=== PATIENT | female | born 1970 | race African-American/Black ===

== ENCOUNTER 2016-12-06 18:10 | Emergency (ER) | payer BC, OTHER ==
[~2016-12-06] VITALS: Ht 167.6 cm; Wt 152.9 kg
[~2016-12-06 18:10] MED LIST: ACET325T9 PO; APIX5TAB PO; IBUP-1060 PO; LISI-334 PO; MEGE400O PO; OMEP20CA9 PO; TIZA4TAB PO; VENTOLIN HFA18 GM INH
--- NOTE | 2016-12-06 19:19 | PHYS DOC ---
Past Medical History Past Medical History: GERD, High Cholesterol, Hypertension, Other Additional Past Medical Histor: DVT, PULMONARY EMBOLISM Past Surgical History: Hysterectomy, Tonsillectomy Alcohol Use: None Drug Use: None Adult General Chief Complaint Chief Complaint: CHEST PAIN HPI HPI Patient is a 46 year old female who presents from primary care clinic for concern of hypertension and chest pain. She notes 2 weeks of anterior chest pain that is pressure-like, mild, constant, nonradiating, involving the entire chest. She denies cough, dyspnea, palpitations, orthopnea, leg pain or swelling , hemoptysis, fever or chills, nausea or vomiting, sore throat, rhinorrhea. Review of Systems Review of Systems Constitutional: Denies fever or chills [] Eyes: Denies change in visual acuity, redness, or eye pain [] HENT: Denies nasal congestion or sore throat [] Respiratory: Denies cough or shortness of breath [] Cardiovascular: No additional information not addressed in HPI [] GI: Denies abdominal pain, nausea, vomiting, bloody stools or diarrhea [] : Denies dysuria or hematuria [] Musculoskeletal: Denies back pain or joint pain [] Integument: Denies rash or skin lesions [] Neurologic: Denies headache, focal weakness or sensory changes [] Endocrine: Denies polyuria or polydipsia [] Current Medications Current Medications Current Medications Medications (Trade) Dose Ordered Sig/Manisha Start Time Stop Time Status Last Admin Dose Admin Acetaminophen (Tylenol) 500 mg 1X ONCE 12/06/16 19:30 12/06/16 19:31 DC 12/06/16 19:26 500 MG Allergies Allergies Allergies Coded Allergies Type Severity Reaction Last Updated Verified No Known Drug Allergies 08/05/16 No Physical Exam Physical Exam Constitutional: Well developed, well nourished, no acute distress, non-toxic appearance. [] HENT: Normocephalic, atraumatic, bilateral external ears normal, oropharynx moist, nose normal. [] Eyes: PERRLA, EOMI. [] Neck: Normal range of motion, supple. [] Cardiovascular:Heart rate regular rhythm [] Lungs & Thorax: Bilateral breath sounds clear to auscultation [] Abdomen: Bowel sounds normal, soft, no tenderness. [] Skin: Warm, dry, no erythema, no rash. [] Back: Normal range of motion. [] Extremities: No tenderness, ROM intact, no edema. [] Neurologic: Alert and oriented X 3, normal motor function, normal sensory function, no focal deficits noted. [] Psychologic: Affect normal, judgement normal, mood normal. [] Current Patient Data Vital Signs Vital Signs Date Time Temp Pulse Resp B/P Pulse Ox O2 Delivery O2 Flow Rate FiO2 12/06/16 19:28 92 20 154/89 97 Room Air 12/06/16 18:19 98.8 98.8 Lab Values Laboratory Tests Test 12/06/16 18:51 POC Troponin I 0.00ng/ml (<0.08) EKG EKG EKG as interpreted by me as normal sinus rhythm, rate 97, no ST-T changes, normal intervals, no ectopy Course & Med Decision Making Course & Med Decision Making Pertinent Labs and Imaging studies reviewed. (See chart for details) Workup is unremarkable. Encouraged follow-up with her primary care doctor for atypical chest pain and uncontrolled hypertension. Return precautions given. She understands and agrees with plan. Dragon Disclaimer Dragon Disclaimer This electronic medical record was generated, in whole or in part, using a voice recognition dictation system. Departure Departure Impression: Primary Impression: Chest pain Additional Impression: Uncontrolled hypertension Disposition: HOME, SELF-CARE Condition: STABLE Referrals: MISTY LITTLE DO (PCP) Patient Instructions: Chest Pain (Nonspecific), [id number] Additional Instructions: Follow-up with your primary care doctor. Return for any concerns. Problem Qualifiers Primary Impression: Chest pain Chest pain type: unspecified Qualified Code: R07.9 - Chest pain, unspecified Joy LYNN MD December 06, 2016 19:19
[2016-12-06 19:28] VITALS: BP 154/89
[2016-12-06] MEDS ORDERED: ACETAMINOPHEN 500 MG TABLET PO ONE (19:30)
--- NOTE | 2016-12-07 06:26 | EKG ---
[facility] [address] [place] [address] Test Date: 2016-12-06 Test Time: 18:34:12 Pat Name: ELVIRA TREVINO Department: Room: Gender: F [employer]rain [employer]: : 1970 Requested By: Joy LYNN Order Number: [id number] Reading MD: Donna Cosby Measurements Intervals [place] Rate: 97 P: 42 DE: 136 QRS: 7 QRSD: 80 T: -3 QT: 344 QTc: 441 Interpretive Statements SINUS RHYTHM LEFT ATRIAL ABNORMALITY Electronically Signed On 12-07-2016 12:17:54 CDT by Donna Cosby
== END 2016-12-06 19:44 | disposition home or self-care (01) ==
LOC: ER 18:10
DX: R07.89 Other chest pain (principal); I10 Essential (primary) hypertension; K21.9 Gastro-esophageal reflux disease without esophagitis; E78.00 Pure hypercholesterolemia, unspecified; Z86.718 Personal history of other venous thrombosis and embolism; Z86.711 Personal history of pulmonary embolism
CPT/HCPCS: 84484; 93005; 99284-25